=== PATIENT | female | born 1945 | race Hispanic/Latino ===

== ENCOUNTER 2017-09-10 05:45 | Inpatient (IN) | payer MEDICARE ==
[2017-09-05 12:55] LABS: BASOPHILS % 0.3 % (0.0-1.0); EOSINOPHILS # (AUTO) 0.1 (0.0-0.4); HEMATOCRIT 34.6 % (34.2-44.1); HEMOGLOBIN 10.4 g/dL (12.0-16.0); LYMPHOCYTES # (AUTO) 2.1 (1.0-3.2); LYMPHOCYTES % 22.6 % (18.0-39.1); MEAN CORPUSCULAR HEMOGLOBIN 24.3 pg (28-32); MEAN CORPUSCULAR HGB CONC 30.1 g/dL (31-35); MEAN CORPUSCULAR VOLUME 80.8 fL (81-99); MONOCYTES # (AUTO) 0.6 (0.2-0.8); MONOCYTES % 6.8 % (4.4-11.3); NEUTROPHILS # (AUTO) 6.4 (2.1-6.9); PLATELET COUNT 407 x10e3/uL (140-360); RED BLOOD COUNT 4.28 x10e6/uL (3.6-5.1); RED CELL DISTRIBUTION WIDTH 17.2 % (11.7-14.4)
[2017-09-05 13:19] LABS: ALANINE AMINOTRANSFERASE 7 IU/L (0-55); ALBUMIN 3.7 g/dL (3.5-5.0); ALBUMIN/GLOBULIN RATIO 0.9 (0.8-2.0); ALKALINE PHOSPHATASE 90 IU/L (40-150); ANION GAP 15.4 mmol/L (8-16); BLOOD UREA NITROGEN 19 mg/dL (7-26); BUN/CREATININE RATIO 23 (6-25); CALCIUM 9.1 mg/dL (8.4-10.2); CARBON DIOXIDE 25 mmol/L (22-29); CHLORIDE 107 mmol/L (98-107); CREATININE, SERUM 0.84 mg/dL (0.57-1.11); EST GLOMERULAR FILTRATION RATE > 60 ML/MIN (60-); GLUCOSE 129 mg/dL (74-118); POTASSIUM 4.4 mmol/L (3.5-5.1); SODIUM 143 mmol/L (136-145)
--- NOTE | 2017-09-05 14:54 | Diagnostic Imaging Report ---
PROCEDURE: X-RAY CHEST, TWO VIEWS COMPARISON: None. INDICATIONS: PRE-OP ULCER FINDINGS: LUNGS: No consolidations or edema. PLEURA: No effusions or pneumothorax. HEART \T\ MEDIASTINUM: The heart is within normal size-limits. BONES \T\ SOFT TISSUES: No acute findings. Clips in the right upper quadrant from previous cholecystectomy. CONCLUSION: No acute thoracic abnormality. Arnel Lehman D.O. Dictated by: Arnel Lehman D.O. on 09/05/2017 at 14:54 Electronically approved by: Arnel Lehman D.O. on 09/05/2017 at 14:54
[~2017-09-10] VITALS: Ht 162.6 cm; Wt 81.2 kg
[~2017-09-10 05:45] MED LIST: ATORVASTATIN CA20 MG PO; CEFAZOLIN SOD 2 GM/D5W 50ML 50 ML IV ONE; FOLIC ACID1 MG PO; GLIPIZIDE5 MG PO; IRON PO; LISINOPRIL10 MG PO; METFORMIN HCL850 MG PO; OXYBUTYNIN CHLOR5 MG PO; PANTOPRAZOLE SO40 MG PO; SUCRALFATE1 GM PO
--- OUTSIDE RECORDS SUMMARY | 2017-09-10 05:47 | XMS REPORT ---
Author Author [facility] Address Unknown Phone Unavailable Care Team Providers Care Call Out Clerk Name Role Phone RODRIGO WELLINGTON Unavailable Unavailable Problems This patient has no known problems. Allergies, Adverse Reactions, Alerts This patient has no known allergies or adverse reactions. Medications This patient has no known medications. Results Test Description Test Time Test Comments Text Results Atomic Results Result Comments CHEST 2 VIEWS [place] [address] Patient Name: MEGGAN MCRAE MR #: [id number] : 1945 Age/Sex: 72/F Req # : [id number] Adm Physician: Ordered by: RODRIGO WELLINGTON MD Report #: [id number] Location: OR Room/Bed: Procedure: [id number] DX/CHEST 2 VIEWS Exam Date: 09/05/17 Exam Time: 1312 REPORT STATUS: Signed PROCEDURE: X-RAY CHEST, TWO VIEWS COMPARISON: None. INDICATIONS: PRE-OP ULCER FINDINGS: LUNGS: No consolidations or edema. PLEURA: No effusions or pneumothorax. HEART T MEDIASTINUM: The heart is within normal size-limits. BONES T SOFT TISSUES: No acute findings. Clips in the right upper quadrant from previous cholecystectomy. CONCLUSION: No acute thoracic abnormality. Ford Lehman D.O. Dictated by: Ford Lehman D.O. on 09/05/2017 at 14:54 Electronically approved by: Ford Lehman D.O. on 09/05/2017 at 14:54 Dictated By: FORD LEHMAN DO 1454 Transcribed By: ALFIE on 09/05/17 1454 COPY TO: RODRIGO WELLINGTON MD
[2017-09-10] MEDS ORDERED: BUPIVACAINE HCL 0.5% INJ 30 ML VIAL INJ ONE (06:35)
[2017-09-10] MEDS ORDERED: DIPHENHYDRAMINE HCL INJ 50 MG/ML VIAL IM PRN (08:30)
[2017-09-10] MEDS ORDERED: DEXTROSE 50% SYRINGE 50 ML IV PRN (08:30)
[2017-09-10] MEDS ORDERED: NALOXONE HCL INJ 0.4 MG/ML AMP IV PRN (08:30)
[2017-09-10] MEDS ORDERED: ACETAMINOPHEN 1000 MG/100 ML IV PRN (08:30)
[2017-09-10] MEDS ORDERED: ONDANSETRON HCL INJ 2 MG/ML VIAL IV PRN (08:30)
[2017-09-10] MEDS: SODIUM CHLORIDE 0.9% 250ML IRRIG IR SCH ×5 (08:30→23:15)
[2017-09-10] MEDS ORDERED: FENTANYL CITRATE/PF 100MCG/2 ML INJ ONE ×2 (08:59→16:07)
--- NOTE | 2017-09-10 09:37 | Operative Report ---
DATE OF PROCEDURE: September 10, 2017 PREOPERATIVE DIAGNOSES 1. Gastric outlet obstruction. 2. Pyloric stricture secondary to peptic ulcer disease. POSTOPERATIVE DIAGNOSES 1. Gastric outlet obstruction. 2. Pyloric stricture secondary to peptic ulcer disease. PROCEDURES 1. Laparoscopic truncal vagotomy. 2. Laparoscopic-assisted partial gastrectomy with Billroth II reconstruction. CANOE MAKER: None. ANESTHESIA: General endotracheal. INDICATIONS AND FINDINGS: Patient is a 72-year-old female who presented with complaints of abdominal pain with weight loss. Workup revealed pyloric stricture on EGD. At surgery, the patient was found to have a dilated stomach. There was thickening of the pylorus with fibrosis extending onto the 1st part of the duodenum. TECHNIQUE: After adequate general endotracheal anesthesia with the patient in the supine position, the abdomen was prepped and draped in a sterile fashion with [place] solution. Approximately, 3 cm above the umbilicus to the left of the midline, the skin and subcutaneous tissue was infiltrated with 0.5% Marcaine. A transverse incision was made. Abdominal wall was elevated and Veress needle was introduced. Pneumoperitoneum was then created. A 10-mm trocar and cannula was passed through this wound. Laparoscopic camera was introduced. Initial laparoscopy revealed some adhesions in the right upper quadrant involving the colon and omentum. Liver appeared normal. Stomach was mildly dilated. A 10-mm trocar and cannula was placed to the right of the midline through the falciform ligament. A 5-mm trocar and cannula were placed left of midline in subxiphoid, and a 5-mm trocar and cannula placed in the anterior axillary line also below the costal margin. With the left lobe of the liver elevated, the lesser omentum was divided with the LigaSure device exposing the esophageal hiatus. The peritoneal attachments to the right side the hiatus were divided. Dissection was carried along the gastroesophageal junction. The posterior vagus nerve was identified. This was dissected free and then divided with the LigaSure device. Dissection was then carried out anteriorly. Anterior peritoneal attachments were divided. The anterior vagus nerve was also identified. This was dissected free and divided with the LigaSure device. The stomach was then mobilized first. The adhesions involving the omentum and colon were lysed. These were adhesions to the abdominal wall and to the edge of the liver. They were lysed using the LigaSure device. The vessels going to the distal greater curvature of the stomach and gastric antrum were divided with the LigaSure device to the pylorus as were the vessels along the lesser curvature. The vessels going into the area of the pylorus and proximal to the duodenum also were divided with the LigaSure device until this portion of the stomach was completely free. Proximally, the vessels going to the stomach also were divided as were some peritoneal attachments to the distal portion of the stomach to beyond the pylorus was completely free. At this point, a transverse incision was made in the upper abdomen connecting 2 of the trocar sites and the peritoneal cavity was entered. The stomach was delivered up into the wound. There was considerable thickening and fibrosis of the pylorus. The duodenum beyond the pylorus, which was almost to the 2nd portion of the duodenum was divided. This was done with a TL-60 stapler. Then the proximal stomach was divided with a TL-90 stapler. Small bowel was identified. The ligament of Treitz was identified. Approximately 20 cm distal to the ligament of Treitz, the small bowel was brought anterior to the colon. Anastomosis made to the end of the stomach with a JUNIOR stapler and TL-60 stapler to create a Billroth II reconstruction. Omentum was sutured over the staple line using 3-0 silk. Hemostasis was seen to be adequate. The duodenal closure was noted to be intact. The duodenum appeared viable. The peritoneal cavity was irrigated with saline and inspected for hemostasis, which was seen to be adequate. The fascia in the transverse wound was closed with a running suture of #1 PDS. Fascia in the larger trocar wounds closed with 0 Vicryl. Skin to all wounds closed with anthony. Sterile dressing was applied to all wounds. The patient tolerated the procedure well. Estimated blood loss was 40 mL. There were no complications. All counts were correct. Patient was taken to the recovery room in satisfactory condition. Job#: [id number] RI cc:GELY BENITEZ MD
[2017-09-10 11:08] VITALS: BP 179/79
[2017-09-10] MEDS: INSULIN LISPRO 100 UNIT/1 ML 3ML VIAL SQ SCH ×3 (11:30→21:11)
[2017-09-10] MEDS ORDERED: HYDRALAZINE HCL 20 MG/ML VIAL IV PRN (11:45)
[2017-09-10 12:00] VITALS: BP 149/68
[2017-09-10] MEDS ORDERED: CEFAZOLIN SOD 1 GM/NS 50ML 50 ML IV SCH (12:00)
[2017-09-10] MEDS: CEFAZOLIN SOD 1 GM VIAL IV SCH ×3 (12:00→23:15)
--- NOTE | 2017-09-10 12:50 | Consultation ---
DATE OF CONSULTATION: September 10, 2017 INTERNAL MEDICINE CONSULTATION REASON FOR CONSULTATION: Postop diabetes and hypertension management. REQUESTING PHYSICIAN: Dr. Qureshi. HISTORY OF PRESENT ILLNESS: This is a 72-year-old woman who is status post laparoscopic-assisted partial gastrectomy with Billroth II reconstruction for gastric outlet obstruction and pyloric stricture secondary to peptic ulcer disease. Currently patient is on Dilaudid SU[employer] FORMER pump and is doing okay. Earlier her blood pressure was elevated. Normally she takes lisinopril for her hypertension. Patient also takes metformin and glipizide for her sugar. Currently she denies any chest pain, shortness of breath, and no nausea or vomiting, just dry mouth at this time. PAST MEDICAL AND SURGICAL HISTORY 1. Hypertension. 2. Diabetes. 3. Peptic ulcer disease. 4. Previous cholecystectomy. MEDICATIONS: Please see medication reconciliation form. ALLERGIES: CODEINE. FAMILY HISTORY: Significant for diabetes. SOCIAL HISTORY: She does not smoke. PHYSICAL EXAMINATION VITAL SIGNS: Afebrile. Vital signs stable. IN GENERAL: No acute distress. HEENT: Oropharynx is dry. Icteric. Nasogastric tube in place. NECK: Supple. LUNGS: Clear anteriorly. HEART: Regular rate and rhythm. Normal S1 and S2. GI: Abdomen soft. Dressing clean, dry and intact. Decreased bowel sounds. : Deferred. EXTREMITIES: No edema. MUSCULOSKELETAL: Painless range of motion. NEUROLOGICALLY: Alert and oriented x3. Cranial nerves 2-12 grossly intact. SKIN: No rash. PSYCHIATRIC: No hallucination. LABORATORY-SINGH: White count of 9, hemoglobin 10, platelet count 407. BUN 19, creatinine 0.8. Chest x-ray was benign. ASSESSMENT AND PLAN 1. Hypertension. At this time, will start IV hydralazine as needed. Will monitor and adjust accordingly. 2. Diabetes. She is currently on D5 LR IV fluid. Will continue Humalog sliding scale. Will add some Levemir if indicated. 3. Postop day number 0 for gastric outlet obstruction surgery. Continue NG tube, n.p.o. and IV fluid per Dr. Qureshi and also IV Dilaudid SU[employer] FORMER pump. 4. Add GI/DVT prophylaxis, Pepcid IV and sequential compression devices only, no chemical due to recent surgery. 5. Patient is on iron supplement. Will check iron studies in the morning. Thank you very much for this consultation. Will continue to follow with you closely. Please call with any questions. Job#: [id number] EV
[2017-09-10] MEDS ORDERED: CEFAZOLIN SOD 1 GM VIAL IV SCH (14:00)
[2017-09-10] MEDS ORDERED: PROPOFOL IV EMULSION 10 MG/ML 20 ML VIAL ONE (14:37)
[2017-09-10] MEDS ORDERED: LIDOCAINE HCL 2% LOCAL INJ 5 ML SDV VIAL INJ ONE (14:37)
[2017-09-10] MEDS ORDERED: SUCCINYLCHOLINE 200 MG/10 ML SYR ONE (14:37)
[2017-09-10] MEDS ORDERED: GLYCOPYRROLATE INJ 1MG/ 5 ML SYR ONE (14:37)
[2017-09-10] MEDS ORDERED: DEXAMETHASONE SOD PHOS INJ 4 MG/ML VIAL ONE (14:37)
[2017-09-10] MEDS ORDERED: ONDANSETRON HCL INJ 2 MG/ML VIAL ONE (14:37)
[2017-09-10] MEDS ORDERED: NEOSTIGMINE 5 MG/5ML SYR ONE (14:37)
[2017-09-10] MEDS ORDERED: ROCURONIUM BROMIDE 10 MG/ML 5ML VIAL ONE (14:37)
[2017-09-10] MEDS ORDERED: SEVOFLURANE INHAL SOLN 250 ML PEN BTL ONE (14:37)
[2017-09-10] MEDS ORDERED: MIDAZOLAM HCL 2 MG/2 ML VIAL ONE (16:07)
[2017-09-10] MEDS: DEXTROSE 5%/LACTATED RINGERS 1,000 ML IV SCH ×3 (16:10→23:15)
[2017-09-10 16:41] VITALS: BP 148/70
[2017-09-10 16:46] VITALS: BP 148/70
[2017-09-10] MEDS: HYDROMORPHONE 0.2MG/ML-SOD CHL 30ML PCA SYRINGE IV PRN (17:30)
[2017-09-10] MEDS: FAMOTIDINE 20 MG/2 ML VIAL IV SCH (17:30)
[2017-09-10 20:00] VITALS: BP 144/67
[2017-09-10 21:11] VITALS: BP 144/67
[2017-09-11] VITALS (8 sets, daily range): BP systolic 129–158; BP diastolic 60–72
[2017-09-11] MEDS: SODIUM CHLORIDE 0.9% 250ML IRRIG IR SCH (04:14)
[2017-09-11] MEDS: DEXTROSE 5%/LACTATED RINGERS 1,000 ML IV SCH ×2 (06:34→17:30)
[2017-09-11 07:10] LABS: BASOPHILS % 0.1 % (0.0-1.0); EOSINOPHILS % 0.1 % (0.0-6.0); HEMATOCRIT 30.9 % (34.2-44.1); HEMOGLOBIN 9.3 g/dL (12.0-16.0); LYMPHOCYTES # (AUTO) 1.2 (1.0-3.2); LYMPHOCYTES % 8.2 % (18.0-39.1); MEAN CORPUSCULAR HEMOGLOBIN 24.4 pg (28-32); MEAN CORPUSCULAR HGB CONC 30.1 g/dL (31-35); MEAN CORPUSCULAR VOLUME 81.1 fL (81-99); MONOCYTES # (AUTO) 1.1 (0.2-0.8); MONOCYTES % 7.5 % (4.4-11.3); NEUTROPHILS # (AUTO) 12.2 (2.1-6.9); NEUTROPHILS % 83.6 % (38.7-80.0); PLATELET COUNT 311 x10e3/uL (140-360); RED BLOOD COUNT 3.81 x10e6/uL (3.6-5.1); RED CELL DISTRIBUTION WIDTH 17.1 % (11.7-14.4)
[2017-09-11 07:28] LABS: % IRON SATURATION 5 % (15-50); ANION GAP 10.9 mmol/L (8-16); BLOOD UREA NITROGEN 12 mg/dL (7-26); BUN/CREATININE RATIO 15 (6-25); CARBON DIOXIDE 29 mmol/L (22-29); CHLORIDE 100 mmol/L (98-107); CREATININE, SERUM 0.79 mg/dL (0.57-1.11); EST GLOMERULAR FILTRATION RATE > 60 ML/MIN (60-); GLUCOSE 195 mg/dL (74-118); IRON 14 ug/dL (50-170); POTASSIUM 3.9 mmol/L (3.5-5.1); SODIUM 136 mmol/L (136-145); TOTAL IRON BINDING CAPACITY 309 ug/dL (261-478); TRANSFERRIN 221 mg/dL (180-382)
[2017-09-11] MEDS: FAMOTIDINE 20 MG/2 ML VIAL IV SCH ×2 (09:06→17:20)
[2017-09-11] MEDS: INSULIN LISPRO 100 UNIT/1 ML 3ML VIAL SQ SCH ×4 (09:06→21:38)
[2017-09-11] MEDS: HYDROMORPHONE 0.2MG/ML-SOD CHL 30ML PCA SYRINGE IV PRN (10:30)
[2017-09-11] MEDS: IRON SUCROSE 100 MG in SODIUM CHLORIDE 0.9% 100 ML 100 ML IV SCH (17:20)
[2017-09-12] VITALS (7 sets, daily range): BP systolic 127–154; BP diastolic 60–70
[2017-09-12] MEDS: DEXTROSE 5%/LACTATED RINGERS 1,000 ML IV SCH ×2 (03:11→15:23)
[2017-09-12] MEDS: HYDROMORPHONE 0.2MG/ML-SOD CHL 30ML PCA SYRINGE IV PRN (03:52)
[2017-09-12] MEDS ORDERED: HYDROMORPHONE 0.2MG/ML-SOD CHL 30ML PCA SYRINGE IV PRN (06:45)
[2017-09-12 07:19] LABS: HEMATOCRIT 29.3 % (34.2-44.1); HEMOGLOBIN 9.1 g/dL (12.0-16.0); MEAN CORPUSCULAR HEMOGLOBIN 24.7 pg (28-32); MEAN CORPUSCULAR HGB CONC 31.1 g/dL (31-35); MEAN CORPUSCULAR VOLUME 79.6 fL (81-99); PLATELET COUNT 311 x10e3/uL (140-360); RED BLOOD COUNT 3.68 x10e6/uL (3.6-5.1)
[2017-09-12 07:49] LABS: ANION GAP 13.3 mmol/L (8-16); BLOOD UREA NITROGEN 8 mg/dL (7-26); BUN/CREATININE RATIO 11 (6-25); CALCIUM 8.3 mg/dL (8.4-10.2); CARBON DIOXIDE 26 mmol/L (22-29); CHLORIDE 99 mmol/L (98-107); EST GLOMERULAR FILTRATION RATE > 60 ML/MIN (60-); GLUCOSE 217 mg/dL (74-118); POTASSIUM 3.3 mmol/L (3.5-5.1); SODIUM 135 mmol/L (136-145)
[2017-09-12] MEDS: FAMOTIDINE 20 MG/2 ML VIAL IV SCH ×2 (09:13→17:06)
[2017-09-12] MEDS: INSULIN LISPRO 100 UNIT/1 ML 3ML VIAL SQ SCH ×4 (09:15→21:00)
[2017-09-12] MEDS: ACETAMINOPHEN 325 MG TAB PO PRN (12:49)
[2017-09-12] MEDS ORDERED: POTASSIUM CHLORIDE 20 MEQ TAB CR PO NR (15:30)
[2017-09-12] MEDS: LISINOPRIL 20 MG TAB PO SCH (17:05)
[2017-09-12] MEDS: METFORMIN HCL 500 MG TAB PO SCH (17:27)
[2017-09-12] MEDS: IRON SUCROSE 100 MG in SODIUM CHLORIDE 0.9% 100 ML 100 ML IV SCH (17:44)
[2017-09-13] VITALS (8 sets, daily range): BP systolic 122–162; BP diastolic 58–74
[2017-09-13] MEDS: DEXTROSE 5%/LACTATED RINGERS 1,000 ML IV SCH (00:24)
[2017-09-13] MEDS: ACETAMINOPHEN 325 MG TAB PO PRN ×2 (05:18→16:20)
[2017-09-13 07:28] LABS: BASOPHILS % 0.1 % (0.0-1.0); EOSINOPHILS # (AUTO) 0.1 (0.0-0.4); EOSINOPHILS % 0.9 % (0.0-6.0); HEMATOCRIT 28.7 % (34.2-44.1); HEMOGLOBIN 8.6 g/dL (12.0-16.0); LYMPHOCYTES # (AUTO) 1.1 (1.0-3.2); LYMPHOCYTES % 10.2 % (18.0-39.1); MEAN CORPUSCULAR VOLUME 80.2 fL (81-99); MONOCYTES # (AUTO) 0.8 (0.2-0.8); MONOCYTES % 7.6 % (4.4-11.3); NEUTROPHILS % 80.7 % (38.7-80.0); PLATELET COUNT 302 x10e3/uL (140-360); RED BLOOD COUNT 3.58 x10e6/uL (3.6-5.1); RED CELL DISTRIBUTION WIDTH 16.7 % (11.7-14.4)
[2017-09-13 07:50] LABS: ANION GAP 10.9 mmol/L (8-16); BLOOD UREA NITROGEN 6 mg/dL (7-26); BUN/CREATININE RATIO 8 (6-25); CALCIUM 8.3 mg/dL (8.4-10.2); CARBON DIOXIDE 29 mmol/L (22-29); CHLORIDE 99 mmol/L (98-107); CREATININE, SERUM 0.71 mg/dL (0.57-1.11); EST GLOMERULAR FILTRATION RATE > 60 ML/MIN (60-); GLUCOSE 197 mg/dL (74-118); SODIUM 136 mmol/L (136-145)
[2017-09-13 07:57] LABS: MAGNESIUM 0.9 MG/DL (1.3-2.1); POTASSIUM 2.9 mmol/L (3.5-5.1)
[2017-09-13] MEDS ORDERED: SODIUM CHLORIDE FLUSH 10 ML SYR INJ PRN (08:00)
[2017-09-13] MEDS ORDERED: POTASSIUM CHLORIDE 20 MEQ TAB CR PO STA (08:19)
[2017-09-13] MEDS ORDERED: MAGNESIUM SULFATE 2GM/50ML 50 ML IV ONE ×2 (08:30)
[2017-09-13] MEDS ORDERED: POTASSIUM CHLORIDE 20 MEQ TAB CR PO ONE (08:30)
[2017-09-13] MEDS: METFORMIN HCL 500 MG TAB PO SCH ×2 (08:46→16:20)
[2017-09-13] MEDS: FAMOTIDINE 20 MG/2 ML VIAL IV SCH ×2 (08:47→16:20)
[2017-09-13] MEDS: LISINOPRIL 20 MG TAB PO SCH (08:47)
[2017-09-13] MEDS: INSULIN LISPRO 100 UNIT/1 ML 3ML VIAL SQ SCH ×4 (08:48→20:49)
[2017-09-13] MEDS: MAGNESIUM/ALUMINUM/SIMETHICONE 30 ML UDC PO PRN (16:20)
[2017-09-13] MEDS: IRON SUCROSE 100 MG in SODIUM CHLORIDE 0.9% 100 ML 100 ML IV SCH (17:51)
[2017-09-13] MEDS: HYDROCODONE/APAP 7.5MG-325MG 1 EA TAB PO PRN (20:55)
[2017-09-14] VITALS (8 sets, daily range): BP systolic 127–166; BP diastolic 60–77
[2017-09-14 07:03] LABS: HEMATOCRIT 27.5 % (34.2-44.1); HEMOGLOBIN 8.7 g/dL (12.0-16.0); MEAN CORPUSCULAR HEMOGLOBIN 24.8 pg (28-32); MEAN CORPUSCULAR HGB CONC 31.6 g/dL (31-35); MEAN CORPUSCULAR VOLUME 78.3 fL (81-99); PLATELET COUNT 297 x10e3/uL (140-360); RED BLOOD COUNT 3.51 x10e6/uL (3.6-5.1); RED CELL DISTRIBUTION WIDTH 17.1 % (11.7-14.4)
[2017-09-14] MEDS: INSULIN LISPRO 100 UNIT/1 ML 3ML VIAL SQ SCH ×4 (07:30→20:42)
[2017-09-14 07:35] LABS: ANION GAP 13.4 mmol/L (8-16); BLOOD UREA NITROGEN 10 mg/dL (7-26); BUN/CREATININE RATIO 15 (6-25); CALCIUM 8.1 mg/dL (8.4-10.2); CARBON DIOXIDE 27 mmol/L (22-29); CHLORIDE 101 mmol/L (98-107); CREATININE, SERUM 0.68 mg/dL (0.57-1.11); EST GLOMERULAR FILTRATION RATE > 60 ML/MIN (60-); GLUCOSE 168 mg/dL (74-118); MAGNESIUM 1.3 MG/DL (1.3-2.1); POTASSIUM 3.4 mmol/L (3.5-5.1); SODIUM 138 mmol/L (136-145)
[2017-09-14] MEDS: HYDROCODONE/APAP 7.5MG-325MG 1 EA TAB PO PRN ×2 (09:10→18:04)
[2017-09-14] MEDS: METFORMIN HCL 500 MG TAB PO SCH ×2 (09:10→17:57)
[2017-09-14] MEDS: FAMOTIDINE 20 MG/2 ML VIAL IV SCH ×2 (09:10→17:57)
[2017-09-14] MEDS: LISINOPRIL 20 MG TAB PO SCH ×2 (09:11→17:57)
[2017-09-14] MEDS ORDERED: POTASSIUM CHLORIDE 10 MEQ TABCR PO ONE (13:00)
[2017-09-14] MEDS ORDERED: SIMETHICONE 40 MG/0.6 ML BTL PO ONE (14:00)
[2017-09-14] MEDS ORDERED: MAGNESIUM SULFATE 2GM/50ML 50 ML IV ONE (14:00)
[2017-09-14] MEDS ORDERED: SIMETHICONE 80 MG CHEW PO ONE (14:30)
[2017-09-14] MEDS: MAGNESIUM/ALUMINUM/SIMETHICONE 30 ML UDC PO PRN (18:04)
[2017-09-14] MEDS: ACETAMINOPHEN 325 MG TAB PO PRN (23:23)
[2017-09-15] VITALS (8 sets, daily range): BP systolic 121–164; BP diastolic 60–94
[2017-09-15 07:05] LABS: BASOPHILS % 0.2 % (0.0-1.0); EOSINOPHILS # (AUTO) 0.2 (0.0-0.4); EOSINOPHILS % 1.4 % (0.0-6.0); HEMATOCRIT 27.8 % (34.2-44.1); HEMOGLOBIN 8.6 g/dL (12.0-16.0); LYMPHOCYTES # (AUTO) 1.1 (1.0-3.2); LYMPHOCYTES % 10.5 % (18.0-39.1); MEAN CORPUSCULAR HEMOGLOBIN 24.2 pg (28-32); MEAN CORPUSCULAR HGB CONC 30.9 g/dL (31-35); MEAN CORPUSCULAR VOLUME 78.3 fL (81-99); MONOCYTES % 9.3 % (4.4-11.3); NEUTROPHILS # (AUTO) 8.5 (2.1-6.9); NEUTROPHILS % 78.2 % (38.7-80.0); PLATELET COUNT 286 x10e3/uL (140-360); RED BLOOD COUNT 3.55 x10e6/uL (3.6-5.1); RED CELL DISTRIBUTION WIDTH 16.9 % (11.7-14.4)
[2017-09-15 07:27] LABS: ANION GAP 10.6 mmol/L (8-16); BLOOD UREA NITROGEN 13 mg/dL (7-26); BUN/CREATININE RATIO 18 (6-25); CARBON DIOXIDE 28 mmol/L (22-29); CHLORIDE 101 mmol/L (98-107); CREATININE, SERUM 0.71 mg/dL (0.57-1.11); EST GLOMERULAR FILTRATION RATE > 60 ML/MIN (60-); GLUCOSE 152 mg/dL (74-118); MAGNESIUM 1.4 MG/DL (1.3-2.1); POTASSIUM 3.6 mmol/L (3.5-5.1); SODIUM 136 mmol/L (136-145)
[2017-09-15] MEDS: INSULIN LISPRO 100 UNIT/1 ML 3ML VIAL SQ SCH ×4 (08:30→21:14)
[2017-09-15] MEDS: METFORMIN HCL 500 MG TAB PO SCH ×3 (08:30→17:30)
[2017-09-15] MEDS: LISINOPRIL 20 MG TAB PO SCH ×2 (09:00→21:14)
[2017-09-15] MEDS: FAMOTIDINE 20 MG/2 ML VIAL IV SCH ×2 (09:00→21:14)
[2017-09-15] MEDS: MAGNESIUM/ALUMINUM/SIMETHICONE 30 ML UDC PO PRN (12:30)
[2017-09-15] MEDS: HYDROCODONE/APAP 7.5MG-325MG 1 EA TAB PO PRN ×2 (14:25→22:40)
[2017-09-15] MEDS: METOPROLOL TARTRATE 50 MG TAB PO SCH (17:30)
[2017-09-15] MEDS: SIMETHICONE 80 MG CHEW PO SCH ×2 (17:30→21:14)
[2017-09-16] VITALS: BP 120/65
[2017-09-16 04:00] VITALS: BP 157/70
--- NOTE | 2017-09-16 07:00 | Discharge Summary ---
ADMISSION DIAGNOSES 1. Pyloric stricture. 2. Gastric outlet obstruction. DISCHARGE DIAGNOSES 1. Pyloric stricture. 2. Gastric outlet obstruction. 3. Anemia. 4. Diabetes mellitus. 5. Hypertension. PRINCIPAL PROCEDURE: Laparoscopic-assisted partial gastrectomy with laparoscopic vagotomy. HISTORY OF PRESENT ILLNESS: Patient is a 72-year-old female who has had weight loss and found to have a stricture in the pylorus requiring surgery. HOSPITAL COURSE: Patient was admitted to the hospital the same day of surgery, and underwent laparoscopic truncal vagotomy and laparoscopic-assisted partial gastrectomy with Billroth-II reconstruction. Postoperatively, the patient was stable. She was seen in consultation by Dr. Anjana Ervin for medical management. She had some mild tachycardia and low-grade fever thought to be due to atelectasis. She was started on a liquid diet on the first postop day, which she tolerated without problem. Diet was advanced gradually to solid food. Bowel function returned to normal. She was treated for her blood pressure and diabetes per the medical consultants. Patient was out of bed ambulating. Wounds remained clean. She gradually became afebrile. She was discharged home on the 6th postop day. At the time of discharge, she was tolerating diet. Wounds were clean and ambulating. DISCHARGE MEDICATIONS: [place] for pain. She will continue on her same home medications as she took prior to admission. She will follow up with Dr. Qureshi in approximately 1 week after discharge. Sent home in satisfactory condition on a regular diet. RODRIGO QURESHI MD Job#: [id number]
[2017-09-16] MEDS: INSULIN LISPRO 100 UNIT/1 ML 3ML VIAL SQ SCH (07:30)
[2017-09-16] MEDS: METFORMIN HCL 500 MG TAB PO SCH (08:00)
[2017-09-16 08:29] VITALS: BP 145/67
[2017-09-16] MEDS: FAMOTIDINE 20 MG/2 ML VIAL IV SCH (08:29)
[2017-09-16] MEDS: SIMETHICONE 80 MG CHEW PO SCH (08:30)
[2017-09-16] MEDS: METOPROLOL TARTRATE 50 MG TAB PO SCH (08:30)
[2017-09-16] MEDS: LISINOPRIL 20 MG TAB PO SCH (09:00)
== END 2017-09-16 10:00 | disposition home or self-care (01) | DRG 327 ==
LOC: OR 05:45 → MED/SURG 09:19
PROVIDERS: ADMIT Surgery; ATTEND Surgery
PROC: 0DT60ZZ Resection of Stomach, Open Approach (ICD-10-PCS; 2017-09-10)
PROC: 008Q4ZZ Division of Vagus Nerve, Percutaneous Endoscopic Approach (ICD-10-PCS; principal; 2017-09-10 07:00)
DX: K31.1 Adult hypertrophic pyloric stenosis (principal); I97.89 Other postprocedural complications and disorders of the circulatory system, not elsewhere classified; E11.65 Type 2 diabetes mellitus with hyperglycemia; J44.9 Chronic obstructive pulmonary disease, unspecified; Z79.4 Long term (current) use of insulin; I10 Essential (primary) hypertension; R50.82 Postprocedural fever; R00.0 Tachycardia, unspecified; D50.9 Iron deficiency anemia, unspecified; E87.6 Hypokalemia; E78.5 Hyperlipidemia, unspecified; K27.9 Peptic ulcer, site unspecified, unspecified as acute or chronic, without hemorrhage or perforation
CPT/HCPCS: 36415; 71046; 80048; 80053; 82948; 83540; 83735; 84466; 85007; 85025; 85027; 86850; 86900; 88307; 93005; 96372; J0360; J0690; J1100; J1756; J2001; J2250; J2405; J7120

== ENCOUNTER 2017-09-20 10:55 | Inpatient (IN) | payer MEDICARE ==
[~2017-09-20] VITALS: Ht 162.6 cm; Wt 77.1 kg
[~2017-09-20 10:55] MED LIST changes: -CEFAZOLIN SOD 2 GM/D5W 50ML 50 ML IV ONE
--- OUTSIDE RECORDS SUMMARY | 2017-09-20 10:59 | XMS REPORT | Continuity of Care Document ---
Author Author [facility] Organization [facility] Address [address] [place] [address] Phone Unavailable Care Team Providers Care Brush Stainer Name Role Phone NONSTAFF PCP Unavailable Insurance Providers Guarantor Meggan Buchanan Address [address] [place] [address] Email [email or web address] Payer [employer] Medicare Replacement Policy Number [id number] Subscriber's Name Meggan Buchanan Relationship 18 Self / Same As Patient Group Number [id number] Group Name HMO PRIME Effective Date 15 Advance Directives Directive Response Recorded Date/Time Does the patient have an advance directive? No 09/10/17 10:47am If yes, is advance directive on file with [facility]? No 09/10/17 10:47am If not on file with [facility] will patient provide a copy? Yes 09/10/17 10:47am Do you have a Directive to Physician? No 09/05/17 11:24am Do you have a Medical Power of Insole Buffer? No 09/05/17 11:24am Do you have an out of hospital Do Not Resuscitate Order? No 09/05/17 11:24am Do you have any special needs we should be aware of? No 09/05/17 11:24am Do you have a support person here with you today? Yes 09/05/17 11:24am Did patient receive Notice of Privacy Practices? Yes 09/05/17 11:24am Did patient receive patient rights and responsibilities? Yes 09/05/17 11:24am Problems No problem information available. Medications Current Home Medications Medication Dose Units Route Directions Days Qty Instructions Start Date Atorvastatin Calcium 20 Mg Tablet 20 Mg Oral Bedtime 30 Tab Folic Acid 1 Mg Tablet 1 Mg Oral Daily 30 Tab Glipizide 5 Mg Tablet 10 Mg Oral Daily Iron 45 Mg Oral Daily Lisinopril 10 Mg Tablet 40 Mg Oral Daily 30 Tab Metformin Hcl 850 Mg Tablet 1,000 Mg Oral Twice A Day 30 Tab Oxybutynin Chloride 5 Mg Tablet 5 Mg Oral Daily 30 Tab Past Home Medications Medication Directions Ordered Status Pantoprazole Sodium (Protonix) 40 Mg Tablet.dr, 40 Mg Oral Discontinued Sucralfate 1 Gm Tablet, 10 Mg Oral Four Times Daily Discontinued Social History No social history information available. Hospital Discharge Instructions No hospital discharge instruction information available. Plan of Care Discharge Date 09/16/17 10:00am Disposition HOME, SELF-CARE Instructions/Education Provided Post Operative Pain Prescriptions See Medication Section Referrals RODRIGO QURESHI MD (Surgery) Order Date: 1 Week Entered Date: 09/16/2017 6:25am Address: [address] [place] [id number] Additional Instructions/Education regular diabetic diet Pt may shower Prescription for [place] Pt should call [phone] for F/U ema't with Dr. Qureshi in about one week Functional Status Query Response Date Recorded Assistive Devices None September 10, 2017 11:08am Ambulation Ability Independent September 10, 2017 11:08am Toileting Ability Minimum Assistance September 14, 2017 6:07pm Allergies, Adverse Reactions, Alerts Allergen Type Severity Reaction Status Last Updated Codeine Allergy Mild RASH Active 01/31/11 TAPE Allergy Unknown Active 09/09/17 Immunizations No immunization information available. Vital Signs Acute Vital Signs Vital Response Date/Time Temperature (Fahrenheit) 97.8 degrees F (97.6 - 99.5) 09/16/2017 8:29am Pulse Pulse Rate (adult) 98 bpm (60 - 90) 09/16/2017 8:29am Respiratory Rate 18 bpm (12 - 24) 09/16/2017 8:29am Blood Pressure 145/67 mm Hg 09/16/2017 8:29am Height 5 ft 4 in 09/10/2017 10:47am Weight 179 lb 09/10/2017 10:47am Body Mass Index 30.7 kg/m^2 09/10/2017 10:47am Results Laboratory Results Test Name Result Units Flags Reference Collection Date/Time Result Date/ Time Comments White Blood Count 10.79 x10e3/uL 4.8-10.8 09/15/2017 6:50am 09/15/2017 7:12am Red Blood Count 3.55 x10e6/uL L 3.6-5.1 09/15/2017 6:50am 09/15/2017 7: 12am Hemoglobin 8.6 g/dL L 12.0-16.0 09/15/2017 6:50am 09/15/2017 7:12am Hematocrit 27.8 % L 34.2-44.1 09/15/2017 6:50am 09/15/2017 7:12am Mean Corpuscular Volume 78.3 fL L 81-99 09/15/2017 6:50am 09/15/2017 7: 12am Mean Corpuscular Hemoglobin 24.2 pg L 28-32 09/15/2017 6:50am 2017 7:12am Mean Corpuscular Hemoglobin Concent 30.9 g/dL L 31-35 09/15/2017 6:50am 09/15/2017 7:12am Red Cell Distribution Width 16.9 % H 11.7-14.4 09/15/2017 6:50am 2017 7:12am Platelet Count 286 x10e3/uL 140-360 09/15/2017 6:50am 09/15/2017 7: 12am Neutrophils (%) (Auto) 78.2 % 38.7-80.0 09/15/2017 6:50am 09/15/2017 7: 12am Lymphocytes (%) (Auto) 10.5 % L 18.0-39.1 09/15/2017 6:50am 09/15/2017 7 :12am Monocytes (%) (Auto) 9.3 % 4.4-11.3 09/15/2017 6:50am 09/15/2017 7: 12am Eosinophils (%) (Auto) 1.4 % 0.0-6.0 09/15/2017 6:50am 09/15/2017 7: 12am Basophils (%) (Auto) 0.2 % 0.0-1.0 09/15/2017 6:50am 09/15/2017 7:12am IM GRANULOCYTES % 0.4 % 0.0-1.0 09/15/2017 6:50am 09/15/2017 7:12am Neutrophils # (Auto) 8.5 H 2.1-6.9 09/15/2017 6:50am 09/15/2017 7: 12am Lymphocytes # (Auto) 1.1 1.0-3.2 09/15/2017 6:50am 09/15/2017 7:12am Monocytes # (Auto) 1.0 H 0.2-0.8 09/15/2017 6:50am 09/15/2017 7:12am Eosinophils # (Auto) 0.2 0.0-0.4 09/15/2017 6:50am 09/15/2017 7:12am Basophils # (Auto) 0.0 0.0-0.1 09/15/2017 6:50am 09/15/2017 7:12am Absolute Immature Granulocyte (auto 0.04 x10e3/uL 0-0.1 09/15/2017 6: 50am 09/15/2017 7:12am Sodium Level 136 mmol/L 136-145 09/15/2017 6:50am 09/15/2017 7:27am Potassium Level 3.6 mmol/L 3.5-5.1 09/15/2017 6:50am 09/15/2017 7:27am Chloride Level 101 mmol/L 98-107 09/15/2017 6:50am 09/15/2017 7:27am Carbon Dioxide Level 28 mmol/L 22-29 09/15/2017 6:50am 09/15/2017 7: 27am Anion Gap 10.6 mmol/L 8-16 09/15/2017 6:50am 09/15/2017 7:27am Blood Urea Nitrogen 13 mg/dL 7-09/15/2017 6:50am 09/15/2017 7:27am Creatinine 0.71 mg/dL 0.57-1.11 09/15/2017 6:50am 09/15/2017 7:27am BUN/Creatinine Ratio 18 6-25 09/15/2017 6:50am 09/15/2017 7:27am Estimat Glomerular Filtration Rate > 60 ML/MIN 60- 09/15/2017 6:50am 7:27am Ranges were taken from the National Kidney Disease Education Program and the National Kidney Foundation literature. Reference ranges: 60 or greater: Normal 16-59 (for 3 consecutive months): Chronic kidney disease 15 or less: Kidney failure Glucose Level 152 mg/dL H 74-118 09/15/2017 6:50am 09/15/2017 7:27am Calcium Level 8.0 mg/dL L 8.4-10.2 09/15/2017 6:50am 09/15/2017 7:27am Bedside Glucose 154 mg/dL H 70-120 09/16/2017 8:01am 09/16/2017 8:17am Meter ID: [id number] Magnesium Level 1.4 MG/DL 1.3-2.1 09/15/2017 6:50am 09/15/2017 7:27am Iron Level 14 ug/dL L 50-170 09/11/2017 6:45am 09/11/2017 7:39am Total Iron Binding Capacity 309 ug/dL 261-478 09/11/2017 6:45am 2017 7:39am Percent Iron Saturation 5 % L 15-50 09/11/2017 6:45am 09/11/2017 7:39am Transferrin 221 mg/dL 180-382 09/11/2017 6:45am 09/11/2017 7:39am Total Bilirubin 0.5 mg/dL 0.2-1.2 09/05/2017 12:50pm 09/05/2017 1:22pm Aspartate Amino Transf (AST/SGOT) 12 IU/L 5-34 09/05/2017 12:50pm 09/05 1:22pm Alanine Aminotransferase (ALT/SGPT) 7 IU/L 0-55 09/05/2017 12:50pm 08/2017 1:22pm Total Protein 7.8 g/dL 6.5-8.1 09/05/2017 12:50pm 09/05/2017 1:22pm Albumin 3.7 g/dL 3.5-5.0 09/05/2017 12:50pm 09/05/2017 1:22pm Globulin 4.1 g/dL H 2.3-3.5 09/05/2017 12:50pm 09/05/2017 1:22pm Albumin/Globulin Ratio 0.9 0.8-2.0 09/05/2017 12:50pm 09/05/2017 1: 22pm Alkaline Phosphatase 90 IU/L 40-150 09/05/2017 12:50pm 09/05/2017 1: 22pm Procedures Procedure Status Date Provider(s) Laparoscopic colectomy Completed 09/10/17 RODRIGO QURESHI MD X-ray of chest, two views Active 09/05/17 RODRIGO QURESHI MD Encounters Encounter Location Arrival/Admit Date Discharge/Depart Date Attending Provider Discharged Inpatient [facility] 09/10/17 9:19am 09/16/17 10:00am RODRIGO QURESHI MD
[2017-09-20] MEDS ORDERED: SODIUM CHLORIDE 0.9% 500ML 500 ML IV STA (11:16)
[2017-09-20] MEDS ORDERED: ONDANSETRON HCL INJ 2 MG/ML VIAL IV STA (11:16)
[2017-09-20 11:46] LABS: BILIRUBIN,URINE 1+ (NEGATIVE); KETONES,URINE 1+ (NEGATIVE); LEUKOCYTE ESTERASE ,URINE TRACE (NEGATIVE); NITRITE,URINE NEGATIVE (NEGATIVE); URINE UROBILINOGEN 0.2 mg/dL (0.2 - 1)
[2017-09-20 11:51] LABS: CLARITY,URINE HAZY (CLEAR); COLOR,URINE YELLOW (YELLOW); PROTEIN,URINE DIPSTICK TRACE (NEGATIVE)
--- NOTE | 2017-09-20 12:02 | Diagnostic Imaging Report ---
EXAMINATION: CHEST SINGLE (PORTABLE) INDICATION: Pain after surgery COMPARISON: None FINDINGS: AP view TUBES and LINES: None. LUNGS: Lungs are well inflated. Subtle atelectasis in left lung base. There is no evidence of pneumonia or pulmonary edema. PLEURA: No pleural effusion or pneumothorax. HEART AND MEDIASTINUM: The cardiomediastinal silhouette is unremarkable. BONES AND SOFT TISSUES: No acute osseous lesion. Soft tissues are unremarkable. UPPER ABDOMEN: No free air under the diaphragm. IMPRESSION: Subtle atelectasis in left lung base. Otherwise unremarkable chest. Signed by: Dr. Davian Cantu M.D. on 09/20/2017 11:59 AM
[2017-09-20 12:18] LABS: BACTERIA,URINE FEW /HPF; EPITHELIAL CELLS,URINE FEW /LPF; RBC,URINE 0-5 /HPF (0-5)
[2017-09-20 12:19] LABS: AMORPHOUS SEDIMENT,URINE FEW (FEW)
[2017-09-20 12:30] LABS: BASOPHILS % 0.2 % (0.0-1.0); EOSINOPHILS % 0.2 % (0.0-6.0); HEMATOCRIT 36.5 % (34.2-44.1); HEMOGLOBIN 11.3 g/dL (12.0-16.0); LYMPHOCYTES # (AUTO) 0.9 (1.0-3.2); LYMPHOCYTES % 5.3 % (18.0-39.1); MEAN CORPUSCULAR HEMOGLOBIN 24.7 pg (28-32); MEAN CORPUSCULAR VOLUME 79.9 fL (81-99); MONOCYTES # (AUTO) 0.7 (0.2-0.8); MONOCYTES % 4.4 % (4.4-11.3); NEUTROPHILS # (AUTO) 14.7 (2.1-6.9); NEUTROPHILS % 89.4 % (38.7-80.0); PLATELET COUNT 550 x10e3/uL (140-360); RED BLOOD COUNT 4.57 x10e6/uL (3.6-5.1); RED CELL DISTRIBUTION WIDTH 18.4 % (11.7-14.4)
[2017-09-20 12:42] LABS: INR 1.1; PROTHROMBIN TIME 13.4 seconds (11.9-14.5)
[2017-09-20 12:43] LABS: PARTIAL THROMBOPLASTIN TIME 29.5 seconds (23.8-35.5)
[2017-09-20] MEDS ORDERED: PANTOPRAZOLE 40 MG 10ML VIAL IV STA (12:48)
[2017-09-20 12:53] LABS: ALBUMIN 3.2 g/dL (3.5-5.0); ALBUMIN/GLOBULIN RATIO 0.7 (0.8-2.0); ANION GAP 12.3 mmol/L (8-16); CALCIUM 8.9 mg/dL (8.4-10.2); CREATININE, SERUM 1.45 mg/dL (0.57-1.11); MAGNESIUM 1.8 MG/DL (1.3-2.1); POTASSIUM 3.3 mmol/L (3.5-5.1)
[2017-09-20 13:00] LABS: CREATINE KINASE MB 0.6 ng/mL (0-5.0)
[2017-09-20] MEDS ORDERED: PIPER-TAZ 3.375 GM 50 ML IV ONE (13:00)
[2017-09-20] MEDS ORDERED: DIATRIZOATE MEGL/DIATRIZOA SOD 30 ML BTL PO ONE (13:03)
[2017-09-20] MEDS ORDERED: ONDANSETRON HCL INJ 2 MG/ML VIAL IV PRN ×2 (14:15)
[2017-09-20] MEDS ORDERED: DEXTROSE 50% SYRINGE 50 ML IV PRN (14:15)
[2017-09-20] MEDS ORDERED: FENTANYL CITRATE/PF 100MCG/2 ML INJ IV SCH (14:15)
--- NOTE | 2017-09-20 15:32 | Diagnostic Imaging Report ---
EXAM: CT Chest, Abdomen and Pelvis WITHOUT contrast INDICATION: Pain after surgery. \S\R/O PE COMPARISON: None. TECHNIQUE: Chest, abdomen and pelvis were scanned utilizing a multidetector helical scanner from the lung apex to the pubic symphysis without administration of IV contrast. Absence of intravenous contrast decreases sensitivity for detection of focal lesions and vascular pathology. Coronal and sagittal reformations were obtained. Routine protocol was performed. IV CONTRAST: None. GFR 33. ORAL CONTRAST: Gastrografin COMPLICATIONS: None RADIATION DOSE: Total DLP: 815.51 mGy*cm Estimated effective dose: (DLP x 0.015 x size factor) mSv CTDIvol has been reviewed. It is below the limits set by the Radiation Protocol Committee (RPC). FINDINGS: LINES and TUBES: None. LUNGS AND AIRWAYS: Subtle airspace opacities in the dependent portion of the left upper lobe and left lower lobe. Dependent atelectasis in both lower lobes. Airways are normal. PLEURA: The pleural spaces are clear. HEART AND MEDIASTINUM: The thyroid gland is normal. No mediastinal, hilar or axillary lymphadenopathy. The heart is normal in size. There is no pericardial effusion. There are mild atherosclerotic calcifications in the aorta and coronary arteries. HEPATOBILIARY: No focal hepatic lesions. No biliary ductal dilation. GALLBLADDER: No radio-opaque stones or sludge. No wall thickening. SPLEEN: No splenomegaly. PANCREAS: Pancreatic atrophy ADRENALS: No adrenal nodules KIDNEYS/URETERS: No hydronephrosis. No cystic or solid mass lesions. No stones. GI TRACT: Recent postoperative changes of the Bilroth 2. No abnormal distention, wall thickening, or evidence of bowel obstruction. There are diverticula within the colon without evidence of diverticulitis. Appendix is normal. PELVIC ORGANS/BLADDER: Unremarkable. LYMPH NODES: No lymphadenopathy. VESSELS: Unremarkable. PERITONEUM / RETROPERITONEUM: No free air or fluid. Postoperative inflammatory changes in the epigastric region. BONES: Unremarkable. SOFT TISSUES: Fat-containing left inguinal hernia. Upper abdominal transverse recent surgical changes. IMPRESSION: 1. Subtle airspace opacities in the left upper lobe and left lower lobe, likely aspiration. 2. Dependent atelectasis. 3. Postoperative changes of a Billroth II. No drainable abscess collection. No bowel obstruction. Signed by: Dr. Davian Cantu M.D. on 09/20/2017 3:28 PM
--- NOTE | 2017-09-20 15:35 | History and Physical ---
She is a 72-year-old female patient who presented with the complaint of chest pain and nausea since last night. HISTORY OF PRESENT ILLNESS: Mrs. Buchanan is a 72-year-old female patient who had recent gastrectomy done by Dr. Qureshi at [facility] on September 10, and patient was released on the . Patient was doing fairly well, and subsequently patient yesterday night started feeling left-sided upper sharp chest pain associated with nausea and vomited once. SIGNIFICANT MEDICAL HISTORY: Patient has a significant medical history of diabetes mellitus, hypertension, anemia and arthritis. PAST SURGICAL HISTORY: Cholecystectomy, tubal ligation, and patient had a recent gastrectomy done for the ulcers. ALLERGIES: PATIENT IS ALLERGIC TO CODEINE AND ADHESIVE TAPES. SOCIAL HISTORY: Denies smoking, denies any alcohol. REVIEW OF SYSTEMS: Nausea, vomiting and left-sided chest pain with shortness of breath. PHYSICAL EXAMINATION GENERAL: She is an elderly female patient lying in the bed, not in any acute distress. VITAL SIGNS: Temperature 99, pulse rate 110, respirations 20, blood pressure 120/70. HEENT: Normocephalic, atraumatic. NECK: No JVD. No lymphadenopathy. LUNGS: Bilaterally equal, fair entry. No rales, no rhonchi except left lower lobe decreased air entry and rhonchus, no rales present. HEART: S1 and S2, regular, systolic murmur present. ABDOMEN: Soft. Bowel sounds are present. Patient has postop anthony, which is clean, no discharge. NEUROLOGIC: No focal neurological deficit. ADMITTING IMPRESSIONS/DIAGNOSES 1. Acute left-sided chest pain, status post gastrectomy. Patient presented with left lower lobe atelectasis. Will need to rule out pulmonary embolism, possibility of pneumonia and atelectasis. 2. Anemia. 3. Gastrectomy. 4. Renal insufficiency. 5. Diabetes mellitus. Patient will have a CT of chest and abdomen without contrast due to high creatinine. Patient will get a V/Q scan. Treat patient with IV antibiotic and Lovenox and oxygen treatment. Will also consult Dr. Qureshi. Job#: [id number] EV
[2017-09-20] MEDS ORDERED: METFORMIN HCL 850 MG TAB PO SCH (17:00)
--- NOTE | 2017-09-20 17:23 | Diagnostic Imaging Report ---
EXAM: VENTILATION PERFUSION LUNG SCAN INDICATION: 72 F with acute onset left-sided chest pain with nausea and shortness of breath COMPARISON: CT chest without contrast 09/20/2017 DISCUSSION: Xenon-133 gas 13.8 mCi was administered via inhalation. Dynamic images of the lungs in the posterior projection were obtained through single breath and washout phases. Distribution of tracer activity is mildly irregular throughout the lungs. Washout is diffusely delayed with diffuse air trapping. Perfusion images of the lungs in multiple projections were obtained following intravenous administration of 5.8 mCi of Tc-99m MAA. Distribution of tracer appears physiologic throughout the lungs. There are no segmental perfusion defects of any size. The contours of the lungs are well demarcated. The cardiac silhouette is unremarkable. IMPRESSION: 1. Scan findings represent a VERY LOW probability for acute pulmonary embolic disease based on the PIOPED II criteria. 2. Scan findings are compatible with diffuse obstructive lung disease. Signed by: Dr. Marzena James M.D. on 09/20/2017 5:19 PM
[2017-09-20] MEDS: FAMOTIDINE 20 MG/2 ML VIAL IV SCH (17:30)
[2017-09-20] MEDS ORDERED: PIPER-TAZ 3.375 GM 50 ML IV SCH (18:00)
[2017-09-20] MEDS: INSULIN REGULAR, HUMAN 100 UNIT/1 ML 3ML VIAL SQ SCH ×2 (20:08→21:00)
[2017-09-20] MEDS: ENOXAPARIN 30 MG/0.3 ML SYR SC SCH (20:25)
[2017-09-20 20:48] VITALS: BP 150/71
[2017-09-20] MEDS: ATORVASTATIN 20 MG TAB PO SCH (21:00)
[2017-09-20] MEDS: PIPER-TAZ 3.375 GM 50 ML IV SCH (21:15)
[2017-09-20] MEDS ORDERED: FENTANYL CITRATE/PF 100MCG/2 ML INJ IV PRN (22:15)
[2017-09-21 00:16] VITALS: BP 143/71
[2017-09-21 00:42] LABS: CREATINE KINASE MB 0.5 ng/mL (0-5.0)
[2017-09-21] MEDS: FAMOTIDINE 20 MG/2 ML VIAL IV SCH ×2 (02:30→13:34)
[2017-09-21 04:00] VITALS: BP 145/74
[2017-09-21] MEDS: PIPER-TAZ 3.375 GM 50 ML IV SCH ×4 (05:57→17:30)
[2017-09-21] MEDS: INSULIN REGULAR, HUMAN 100 UNIT/1 ML 3ML VIAL SQ SCH ×4 (08:00→21:00)
[2017-09-21 08:17] LABS: BASOPHILS % 0.4 % (0.0-1.0); EOSINOPHILS # (AUTO) 0.1 (0.0-0.4); EOSINOPHILS % 1.1 % (0.0-6.0); HEMOGLOBIN 10.1 g/dL (12.0-16.0); LYMPHOCYTES # (AUTO) 1.6 (1.0-3.2); LYMPHOCYTES % 14.7 % (18.0-39.1); MEAN CORPUSCULAR HEMOGLOBIN 24.7 pg (28-32); MEAN CORPUSCULAR HGB CONC 30.6 g/dL (31-35); MEAN CORPUSCULAR VOLUME 80.7 fL (81-99); MONOCYTES # (AUTO) 0.8 (0.2-0.8); MONOCYTES % 6.9 % (4.4-11.3); NEUTROPHILS # (AUTO) 8.4 (2.1-6.9); NEUTROPHILS % 76.4 % (38.7-80.0); PLATELET COUNT 468 x10e3/uL (140-360); RED BLOOD COUNT 4.09 x10e6/uL (3.6-5.1); RED CELL DISTRIBUTION WIDTH 18.3 % (11.7-14.4)
[2017-09-21 08:38] LABS: ALBUMIN 2.6 g/dL (3.5-5.0); ALBUMIN/GLOBULIN RATIO 0.7 (0.8-2.0); CALCIUM 8.3 mg/dL (8.4-10.2); CHOL/HDL RATIO 2.9 (3.0-3.6); CREATININE, SERUM 1.24 mg/dL (0.57-1.11); PHOSPHORUS 2.5 MG/DL (2.3-4.7)
[2017-09-21] MEDS: OXYBUTYNIN CHLORIDE 5 MG TAB PO SCH (08:45)
[2017-09-21] MEDS: FOLIC ACID 1 MG TAB PO SCH (08:45)
[2017-09-21] MEDS: GLIPIZIDE 5 MG TAB PO SCH (08:45)
[2017-09-21] MEDS: PANTOPRAZOLE 40 MG 10ML VIAL IV SCH (08:45)
[2017-09-21] MEDS: LISINOPRIL 20 MG TAB PO SCH (08:45)
[2017-09-21] MEDS: LEVALBUTEROL HCL SOLN NEBU 1.25 MG/3 ML NEB INH SCH ×2 (13:00→20:15)
[2017-09-21] MEDS: IPRATROPIUM BROMIDE 0.02% 2.5 ML NEB NEB SCH ×2 (13:00→20:15)
[2017-09-21 14:29] LABS: MAGNESIUM 1.5 MG/DL (1.3-2.1)
[2017-09-21 17:27] VITALS: BP 142/65
[2017-09-21] MEDS: ENOXAPARIN 30 MG/0.3 ML SYR SC SCH (17:30)
[2017-09-21] MEDS ORDERED: SODIUM CHLORIDE 0.9% 250ML 250 ML ONE (17:37)
[2017-09-21 17:59] VITALS: BP 142/65
[2017-09-21] MEDS ORDERED: POTASSIUM CHLORIDE 10 MEQ TABCR PO ONE (20:00)
[2017-09-21] MEDS: ATORVASTATIN 20 MG TAB PO SCH (20:48)
[2017-09-21 20:50] VITALS: BP 147/65
[2017-09-22] VITALS: BP 156/70
[2017-09-22] MEDS: IPRATROPIUM BROMIDE 0.02% 2.5 ML NEB NEB SCH ×2 (02:15→07:00)
[2017-09-22] MEDS: LEVALBUTEROL HCL SOLN NEBU 1.25 MG/3 ML NEB INH SCH ×2 (02:15→07:00)
[2017-09-22] MEDS: FAMOTIDINE 20 MG/2 ML VIAL IV SCH (02:24)
[2017-09-22 05:19] VITALS: BP 144/69
[2017-09-22] MEDS ORDERED: PIPER-TAZ 3.375 GM 50 ML IV SCH (06:00)
[2017-09-22 07:24] LABS: ALBUMIN 2.5 g/dL (3.5-5.0); ALBUMIN/GLOBULIN RATIO 0.7 (0.8-2.0); ANION GAP 12.4 mmol/L (8-16); CALCIUM 8.4 mg/dL (8.4-10.2); CREATININE, SERUM 1.2 mg/dL (0.57-1.11); POTASSIUM 3.4 mmol/L (3.5-5.1)
[2017-09-22 07:30] VITALS: BP_SYST 161
[2017-09-22 08:10] VITALS: BP 161/69
[2017-09-22] MEDS: PANTOPRAZOLE 40 MG 10ML VIAL IV SCH (09:00)
[2017-09-22] MEDS: GLIPIZIDE 5 MG TAB PO SCH (09:09)
[2017-09-22] MEDS: INSULIN REGULAR, HUMAN 100 UNIT/1 ML 3ML VIAL SQ SCH (09:09)
[2017-09-22] MEDS: LISINOPRIL 20 MG TAB PO SCH (09:10)
[2017-09-22] MEDS: OXYBUTYNIN CHLORIDE 5 MG TAB PO SCH (09:10)
[2017-09-22] MEDS: FOLIC ACID 1 MG TAB PO SCH (09:10)
[2017-09-22] MEDS ORDERED: POTASSIUM CHLORIDE 20 MEQ TAB CR PO ONE (10:25)
--- NOTE | 2017-09-22 16:00 | Discharge Summary ---
Patient is a 72-year-old female patient who presented to the emergency room with the complaint of left-sided chest pain, sharp pain. Patient had recently surgery done with a Billroth II gastrectomy by Dr. Qureshi at __[facility], and patient was doing postop well. ADMITTING IMPRESSION/DIAGNOSIS 1. Left-sided chest pain. 2. Atelectasis. 3. Possible pneumonia. 4. Recent gastrectomy. Patient had a V/Q scan done which was low probability for the PE and showed some possible COPD and left lower lobe patchy haziness and atelectasis and possible aspiration. HOSPITAL COURSE SUMMARY: Patient was admitted with the above complaint with the left lower chest pain and nausea, vomiting. Patient was given IV antibiotic, Zosyn, and IV analgesics and nebulizer medicine. With the above treatment, patient improved significantly and patient's postop anthony were removed. Now upon stabilization, patient will be discharged home on Augmentin and tramadol for pain. Patient will be followed up as outpatient in the next few days. JACOB DEUTSCH MD Job#: [id number] EV
--- NOTE | 2017-09-29 08:43 | Consultation ---
DATE OF CONSULTATION: September 20, 2017 Patient is a 72-year-old female known to me. She underwent partial gastrectomy recently. She was doing well at home and then developed some symptoms of nausea and vomiting. She came to the emergency room where evaluation has revealed possible pneumonia. She has some complaints of abdominal pain at the site of her wounds. She is having bowel movements. She has not had any fever. PAST MEDICAL HISTORY: Significant for gastric obstruction which has been treated with recent surgery, history of diabetes, hypercholesterolemia. FAMILY HISTORY: Noncontributory. SOCIAL HISTORY: Patient does not smoke cigarettes or drink alcohol at this time. REVIEW OF SYSTEMS: As stated above. The nausea started after she took some pain medication. PHYSICAL EXAMINATION: GENERAL: The patient is awake and alert. VITALS: Significant for heart rate around 105. She is afebrile. HEENT: Reveals no scleral icterus. NECK: Has no masses. LUNGS: Have some rales at the left base. CARDIAC: Regular rate and rhythm. Normal S1 and S2 without murmur, S3 or S4. ABDOMEN: Soft. There is no tenderness. No mass. No distension. Wounds are clean. EXTREMITIES: Warm. There is no edema. LAB TESTS: White blood count is 16,000. Hemoglobin and hematocrit are normal. Chemistries with slightly low potassium, otherwise normal. ASSESSMENT: A 72-year-old female with nausea and vomiting after recent gastrectomy. Her abdomen seems okay. Seems that the lungs may be the source of her symptoms. There is concern for pulmonary embolus and possible pneumonia. She is to be evaluated further with a computerized tomography scan. At this point, there are no findings that would warrant surgical intervention and no findings that would suggest intra-abdominal complication from her recent surgery. Thank you for asking me to see Ms. Buchanan. Job#: [id number] RI
== END 2017-09-22 11:38 | disposition home or self-care (01) | DRG 194 ==
LOC: ER 10:55 → ERHOLD 14:10 → MED/SURG 09-21 15:27
PROVIDERS: ADMIT Internal Medicine; ATTEND Internal Medicine
DX: J18.9 Pneumonia, unspecified organism (principal); J98.11 Atelectasis; J44.9 Chronic obstructive pulmonary disease, unspecified; E11.9 Type 2 diabetes mellitus without complications; I10 Essential (primary) hypertension; D64.9 Anemia, unspecified; R11.2 Nausea with vomiting, unspecified; Z90.3 Acquired absence of stomach [part of]; R07.9 Chest pain, unspecified; E78.5 Hyperlipidemia, unspecified; M19.90 Unspecified osteoarthritis, unspecified site; E87.6 Hypokalemia; N28.9 Disorder of kidney and ureter, unspecified; Z88.5 Allergy status to narcotic agent; Z91.048 Other nonmedicinal substance allergy status
CPT/HCPCS: 36415; 71045; 71250; 74176; 78582; 80053; 80061; 81001; 82150; 82550; 82553; 82948; 83605; 83690; 83735; 83880; 84100; 84484; 85025; 85610; 85730; 86850; 86900; 87040; 87086; 87186; 93005; 94640; 99284; A9540; A9558; J1650; J2405; J2543; J7040; J7050

== ENCOUNTER → 2017-11-05 | Outpatient (CLI) | payer MEDICARE ==
[~2017-11-05] MED LIST changes: +DIATRIZOATE MEGL/DIATRIZOA SOD 30 ML BTL PO ONE; +IOPAMIDOL 370 MG/ML 200 ML INFUS..BTL INJ ONE; +SODIUM CHLORIDE 0.9% 50ML 50 ML ONE
[2017-11-05 08:15] LABS: BLOOD UREA NITROGEN 17 mg/dL (7-26); BUN/CREATININE RATIO 21 (6-25); EST GLOMERULAR FILTRATION RATE > 60 ML/MIN (60-)
--- NOTE | 2017-11-05 09:52 | Diagnostic Imaging Report ---
PROCEDURE: CT ABDOMEN AND PELVIS WITH CONTRAST TECHNIQUE: The abdomen and pelvis were scanned utilizing a multidetector helical scanner from the diaphragm to the lesser trochanter after the IV administration of 100 cc of Isovue 370 and the oral administration of Gastroview. Coronal and sagittal multiplanar reformations were obtained. COMPARISON: CT abdomen and pelvis 09/20/2017. INDICATIONS: EPIGASTRIC PAIN FINDINGS: LOWER THORAX: Normal. HEPATOBILIARY: No focal hepatic lesions. No biliary ductal dilatation. Cholecystectomy. SPLEEN: No splenomegaly. PANCREAS: No focal masses or ductal dilatation. ADRENALS: No adrenal nodules. KIDNEYS/URETERS: No hydronephrosis, stones, or solid mass lesions. PELVIC ORGANS/BLADDER: Unremarkable. PERITONEUM / RETROPERITONEUM: No free air or fluid. Fat containing left inguinal hernia. The laparotomy incision is well-healed. The fascia is intact. LYMPH NODES: No lymphadenopathy. VESSELS: Scattered aortoiliac atherosclerotic calcifications. GI TRACT: Postoperative changes of distal gastric resection with end to side gastrojejunostomy anastomosis in the left upper quadrant. The anastomosis is patent. The duodenum is normal. No drainable fluid collection. No distention or wall thickening. Normal appendix. Scattered diverticuli are present in the descending and sigmoid colon, without adjacent soft tissue inflammatory changes. Moderate amount of retained feces limits intraluminal evaluation of the colon. BONES AND SOFT TISSUES: Degenerative changes of the lumbar spine. IMPRESSION: No acute abnormality of the abdomen and pelvis. Postoperative changes of the stomach. Diverticulosis without evidence of diverticulitis. Dictated by: Mirza Nunez M.D. on 11/05/2017 at 9:54 Electronically approved by: Mirza Nunez M.D. on 11/05/2017 at 9:54
== END ==
LOC: CT 07:28
PROVIDERS: ATTEND Internal Medicine Gastroenterology
DX: R10.13 Epigastric pain (principal); R11.2 Nausea with vomiting, unspecified; E11.9 Type 2 diabetes mellitus without complications; K31.1 Adult hypertrophic pyloric stenosis; K57.30 Diverticulosis of large intestine without perforation or abscess without bleeding; K44.9 Diaphragmatic hernia without obstruction or gangrene; I10 Essential (primary) hypertension; R63.4 Abnormal weight loss; E66.3 Overweight; Z71.3 Dietary counseling and surveillance; Z86.010 Personal history of colon polyps
CPT/HCPCS: 36415; 74177; 82565; 84520; Q9967

== ENCOUNTER → 2017-12-31 | Outpatient (CLI) | payer MEDICARE ==
[~2017-12-31] MED LIST changes: -DIATRIZOATE MEGL/DIATRIZOA SOD 30 ML BTL PO ONE; -IOPAMIDOL 370 MG/ML 200 ML INFUS..BTL INJ ONE; -SODIUM CHLORIDE 0.9% 50ML 50 ML ONE
== END ==
LOC: MAMMO 09:19
PROVIDERS: ATTEND Internal Medicine
DX: Z12.31 Encounter for screening mammogram for malignant neoplasm of breast (principal)
CPT/HCPCS: 77067

== ENCOUNTER → 2019-06-02 | Outpatient (CLI) | payer MEDICARE ==
[~2019-06-02] MED LIST changes: +IOPAMIDOL 370 MG/ML 200 ML INFUS..BTL INJ ONE; +SODIUM CHLORIDE 0.9% 100 ML ONE
[2019-06-02 09:45] LABS: BLOOD UREA NITROGEN 23 mg/dL (7-26); BUN/CREATININE RATIO 27 (6-25); CREATININE, SERUM 0.86 mg/dL (0.57-1.11); EST GLOMERULAR FILTRATION RATE > 60 ML/MIN (60-)
--- NOTE | 2019-06-02 11:57 | Diagnostic Imaging Report ---
CT of the abdomen and pelvis, with lower extremity runoff, 06/02/2019. History: Peripheral arterial disease. Comparison: CT abdomen 11/23/2017. Technique: Multidetector CT scanning of the abdomen and pelvis was performed from the level of the lung bases to the inferior pubic rami after intravenous administration of contrast. Coronal and sagittal multiplanar, MIP, and 3-D volume-rendering reformations were obtained. RADIATION DOSE: Total DLP: 867 mGy*cm Dose modulation, iterative reconstruction, and/or weight based adjustment of the mA/kV was utilized to reduce the radiation dose to as low as reasonably achievable. Discussion: Arterial system: Abdominal aorta: The abdominal aorta is within normal limits for size. The celiac trunk, SMA, single bilateral renal arteries, and MORGAN are patent. Pelvis vessels: Bilateral common, external, and internal iliac arteries are patent. Right lower extremity: Right common femoral, profundus femoral, superficial femoral, and popliteal arteries are patent. There is a patent trifurcation with anterior tibial, posterior tibial, and peroneal arteries reaching the ankle. Left lower extremity: Left common femoral, profundus femoral, superficial femoral, and popliteal arteries are patent. There is a patent trifurcation proximally, but there is occlusion of the posterior tibia artery proximally. The anterior tibial and peroneal artery are patent to reach the ankle. There is reconstitution of the distal posterior tibial artery. LUNG BASES: There is bibasilar dependent atelectasis. ABDOMEN: Cholecystectomy clips are present. The liver, biliary tree, spleen, pancreas, adrenal glands, and kidneys are normal. The hepatic vein, portal vein, and splenic vein are patent. Evaluation of bowel is limited without oral contrast. Gastrojejunostomy is again noted. There is no bowel dilatation. The appendix is visualized and is normal. Scattered colonic diverticuli are present without evidence of adjacent inflammation. There is no evidence of adenopathy or free fluid. PELVIS: The bladder, uterus, and adnexa are unremarkable. There is no evidence of free fluid or adenopathy. A fat-containing left inguinal hernia is present. BONES AND SOFT TISSUES: Degenerative changes are present throughout the lumbar spine without evidence of lytic or sclerotic lesion. IMPRESSION: 1. Normal abdominal aorta, pelvic, and proximal lower extremity arterial vessels. Three-vessel runoff on the right and two vessel runoff on the left. 2. Colonic diverticulosis without evidence of diverticulitis. 3. Status post cholecystectomy and gastrojejunostomy. Signed by: Pablo Winters on 06/02/2019 11:54 AM
== END ==
LOC: CT 08:14
PROVIDERS: ATTEND Internal Medicine
DX: E11.51 Type 2 diabetes mellitus with diabetic peripheral angiopathy without gangrene (principal); I73.9 Peripheral vascular disease, unspecified
CPT/HCPCS: 36415; 75635; 82565; 84520; J7050; Q9967

== ENCOUNTER → 2020-05-12 | Outpatient (CLI) | payer MEDICARE ==
[~2020-05-12] MED LIST changes: -IOPAMIDOL 370 MG/ML 200 ML INFUS..BTL INJ ONE; -SODIUM CHLORIDE 0.9% 100 ML ONE
== END ==
LOC: MAMMO 13:25
PROVIDERS: ATTEND Internal Medicine
DX: Z12.31 Encounter for screening mammogram for malignant neoplasm of breast (principal)
CPT/HCPCS: 77067

== ENCOUNTER → 2024-02-23 | Outpatient (REF) | payer MEDICARE | LOC: RAD 10:57 | PROVIDERS: ATTEND Internal Medicine | DX: M71.21 Synovial cyst of popliteal space [Baker], right knee (principal) ==